=== PATIENT | male | born 1970 | race African-American/Black ===

== ENCOUNTER 2019-06-25 20:38 | Emergency (ER) | payer MEDICAID ==
[~2019-06-25] VITALS: Ht 175.3 cm; Wt 90.7 kg
[2019-06-25 21:13] LABS: Eosinophils # (auto) 0 uL; Lymphocytes # (auto) 1.9 uL; Mean Corpuscular Volume 102.5 fL (80.0-100.0); Monocytes # (auto) 0.4 uL; Neutrophils # (auto) 2.5 uL
[2019-06-25 21:15] LABS: Basophils # (auto) 0 uL; Basophils % (auto) 0.8 % (0.0-2.0); Eosinophils % (auto) 0.3 % (0.0-7.0); Hematocrit 47.1 % (41.0-53.0); Hemoglobin 15.9 g/dL (13.5-17.5); Lymphocytes % (auto) 38.9 % (10.0-50.0); Mean Corpuscular Hemoglobin 34.7 pg (28.0-32.0); Mean Corpuscular Hgb Conc. 33.8 g/dL (32.0-36.0); Monocytes % (auto) 7.6 % (0.0-12.0); Neutrophils % (auto) 52.4 % (37.0-80.0); Nucleated Red Blood Cells % 0.1 %; Platelet Count (auto) 215 10^3/uL (140-450); Red Blood Cells 4.59 10^6/uL (4.5-5.90); Red Cell Distribution Width 17.3 % (11.8-14.3); White Blood Cell 4.8 10^3/uL (4.4-10.8)
[2019-06-25] MEDS ORDERED: THIAMINE INJ 100 MG in SODIUM CHLORIDE 0.9% 1,000 ML IV ONE (21:30)
[2019-06-25 21:31] LABS: Albumin 4.2 g/dL (3.4-5.0); Anion Gap 10 (5-15); Blood Urea Nitrogen 9 mg/dL (7-18); Calcium 9.1 mg/dL (8.5-10.1); Carbon Dioxide 26 mmol/L (21-32); Chloride 107 mmol/L (98-107); Glucose 101 mg/dL (74-106); Magnesium 1.7 mg/dL (1.6-2.6); Potassium 3.7 mmol/L (3.5-5.1); Sodium 143 mmol/L (136-145)
[2019-06-25 21:35] LABS: INR 0.97 (0.9-1.15); Partial Thromboplastin Time 25.9 sec (23.64-32.05)
[2019-06-25 21:40] LABS: Alanine Aminotransferase 37 U/L (16-61); Alkaline Phosphatase 100 U/L (45-117); Aspartate Aminotransferase 54 U/L (15-37); BUN/Creatinine Ratio 8.8; Bilirubin, Total 0.3 mg/dL (0.2-1.0); GFR African American 100 mL/min; GFR Non-African American 83 mL/min; Total Protein 8.5 g/dL (6.4-8.2)
[2019-06-25] MEDS ORDERED: SODIUM CHLORIDE 0.9% 1,000 ML IV ONE (22:15)
[2019-06-25] MEDS ORDERED: LORazepam 2MG/ML-1ML VIAL IV ONE (23:15)
[2019-06-26] MEDS ORDERED: SODIUM CHLORIDE 0.9% 1,000 ML IV ONE (01:00)
[2019-06-26 01:23] VITALS: BP 135/78
[2019-06-26] MEDS ORDERED: LEVETIRACETAM INJ 1,000 MG in D5W 5% 100 ML IV ONE (03:45)
[2019-06-26] MEDS ORDERED: LEVETIRACETAM 500 MG/5ML INJ IV ONE (03:55)
== END 2019-06-26 06:15 | disposition home or self-care (01) ==
LOC: ER 20:42
DX: G92 Toxic encephalopathy (principal); F10.129 Alcohol abuse with intoxication, unspecified; R41.0 Disorientation, unspecified; Y90.8 Blood alcohol level of 240 mg/100 ml or more
CPT/HCPCS: 36415; 70450; 80053; 80320; 83735; 84484; 85025; 85610; 85730; 96361; 96365; 96367; 96375; 99284; J1953; J2060; J3411; J7030; J7060